=== PATIENT | female | born 1980 | race Hispanic/Latino ===

== ENCOUNTER 2024-08-30 11:28 | Emergency (ER) | payer BC, OTHER ==
[~2024-08-30] VITALS: Ht 162.6 cm; Wt 87.1 kg
[~2024-08-30 11:28] MED LIST: ACETAMINOPHEN-1 EAC4 PO; CEPHALEXIN500 MG PO; KETOROLAC TROME10 MG PO; MECLIZINE HCL12.5 MG PO; ONDANSETRON ODT4 MG PO; PREDNISONE20 MG PO
[2024-08-30 12:28] VITALS: PULSE 87; RESP 18; TEMP 98.3; O2SAT 100
[2024-08-30] MEDS ORDERED: MECLIZINE HCL 12.5 MG TAB PO ONE (12:45)
[2024-08-30] MEDS ORDERED: ONDANSETRON HCL 4 MG ORAL DISINTEGRATING TAB PO ONE (12:45)
[2024-08-30] MEDS ORDERED: MECLIZINE HCL25 MG PO (14:12)
[2024-08-30] MEDS ORDERED: ONDANSETRON ODT4 MG PO (14:42)
== END 2024-08-30 14:40 | disposition home or self-care (01) ==
LOC: ER 13:03
DX: R42 Dizziness and giddiness (principal); R11.2 Nausea with vomiting, unspecified; R10.13 Epigastric pain; K21.9 Gastro-esophageal reflux disease without esophagitis; M79.7 Fibromyalgia; E55.9 Vitamin D deficiency, unspecified; M54.9 Dorsalgia, unspecified; G89.29 Other chronic pain; Z87.442 Personal history of urinary calculi
CPT/HCPCS: 99282